=== PATIENT | female | born 1985 | race Caucasian/White ===

== ENCOUNTER 2016-02-21 10:18 | Emergency (ER) | payer OTHER ==
[~2016-02-21] VITALS: Ht 167.6 cm; Wt 99.8 kg
--- NOTE | 2016-02-21 11:09 | ED GI/GU/ABDOMINAL COMPLAINT ---
History of Present Illness General Chief Complaint: Nausea, Vomiting, Diarrhea Stated Complaint: N/V/DY Source: patient, old records Exam Limitations: no limitations Allergies Coded Allergies: No Known Allergies (02/21/16) Reconcile Medications Ondansetron HCl (Zofran) 4 MG TABLET 1 TAB PO Q6-8P PRN NAUSEA Triage Note: PT STATES HAS N/V/D SINCE 1030 LAST EVENING. Triage Nurses Notes Reviewed? yes ? n Is pt currently ? No Onset: Abrupt Duration: day(s): (1), constant, waxing and waning Timing: recent history Quality/Severity: vomiting Severity Numbers: 5 Location: generalized abdomen Radiation: no radiation Activities at Onset: sleep Prior Abdominal Problems: none Modifying Factors: Worsens With: eating. Associated Symptoms: denies HPI: 30-year-old female presents to emergency room complaining of multiple of nausea and vomiting since this morning. Patient reports that her mother has been home sick with similar symptoms. She denies any abdominal pain chest pain fever chills. No diarrhea and no black or bloody stools no hematemesis no urinary symptoms. The patient states that she did take her methadone yesterday however is unable to keep any further medications down today secondary to her symptoms. Symptoms are worse with attempted eating and drinking third no other modifying factors or associated symptoms (IVAN CARBAJAL) Vital Signs & Intake/Output Vital Signs & Intake/Output Vital Signs Date Time Temp Pulse Resp B/P Pulse O2 O2 Flow FiO2 Ox Delivery Rate 02/20 1252 97.9 68 18 102/56 100 Room Air 02/20 1145 Room Air 02/20 1032 97.4 74 16 108/70 98 Room Air Past History Travel History Traveled to [place] past 21 day No Medical History Any Pertinent Medical History? see below for history Psychiatric: anxiety, bipolar disease, depression, PTSD Surgical History Surgical History: Psychosocial History What is your primary language [place] Tobacco Use: Current Daily Use Daily Tobacco Use Amount/Type: => 5 Cigarettes daily ETOH Use: occasional use Illicit Drug Use: METHADONE Family History Hx Contributory? No (IVAN CARBAJAL) Review of Systems Review of Systems Constitutional: Reports: see HPI. All Other Systems: Reviewed and Negative Comments Review of systems: See HPI, All other systems negative. Constitutional, no chills no fever, no malaise HEENT: No visual changes no sore throat no congestion Cardiovascular: No chest pain , no palpitation Skin, no rashes, no change in skin Respiratory: No dyspnea no cough no sputum GI:nausea vomiting, no diarrhea : No dysuria No hematuria, no frequency Muscle skeletal: No joint pain, no back pain, no neck pain, Neurologic: No numbness no headache Psych: No stress Heme/endocrine: No bruising no bleeding Immunology: No lymphadenopathy (IVAN CARBAJAL) Physical Exam Physical Exam General Appearance: well developed/nourished, no apparent distress, alert, awake Gastrointestinal: soft Comments: Well-developed well-nourished person in no acute distress HEENT: Normal EENT exam; PERRL, EOMI,HEAD is atraumatic. moist mucous membranes. Neck: Supple, normal range of motion Back: Nontender, no CVA tenderness. Full range of motion Cardiovascular: Regular rate and rhythms no murmurs rubs Respiratory: No respiratory distress. Patient speaking in full complete sentences. Breath sounds clear to auscultation bilaterally: NO W/R/R Abdomen: Soft, nontender nondistended, no appreciable organomegaly. Normal bowel sounds. No rebound/guarding, No ascites. Extremity: No edema, full range of motion of extremities, Neuro: Alert oriented x3, motor sensory normal There were no obvious focal neurologic abnormalities. Skin: No appreciable rash on exposed skin, skin is warm and dry. Psych: Mood and affect is normal, memory and judgment is normal. Core Measures ACS in differential dx? No Severe Sepsis Present: No Septic Shock Present: No (IVAN CARBAJAL) Progress Differential Diagnosis: appendicitis, bowel obstruction, colon cancer, cholecystitis, diverticulitis, ectopic , gastritis, hepatitis, hernia, inflamm bowel dis, intrauterine , Helen-Keila tear, pancreatitis, peptic ulcer, PUD/GERD, SBO, UTI/pyelo Initial ED EKG: none (IVAN CARBAJAL) Plan of Care: Orders Procedure Date/time Status Add-on Test (ER Only) 02/20 1206 Active HUMAN BETA HCG SCREEN 02/20 1139 Complete Saline Lock 02/20 1124 Active LIPASE 02/20 1124 Complete COMPREHENSIVE METABOLIC PANEL 02/20 1124 Complete CBC WITHOUT DIFFERENTIAL 02/20 1124 Complete AMYLASE 02/20 1124 Complete Laboratory Tests 02/21/16 1139: Anion Gap 15, Estimated GFR > 60, BUN/Creatinine Ratio 16.7, Glucose 113 H, Calcium 9.5, Total Bilirubin 0.6, AST 24, ALT 33, Alkaline Phosphatase 74, Total Protein 8.0, Albumin 4.3, Globulin 3.7, Albumin/Globulin Ratio 1.2, Amylase < 30 L, Lipase 75, Total Beta HCG NEGATIVE, CBC w Diff MAN DIFF ORDERED, RBC 5.00, MCV 86.0, MCH 28.3, RDW 14.7 H, MPV 9.8, Gran % 89.6 H, Lymphocytes % 8.8 L, Monocytes % 1.5 L, Eosinophils % 0, Basophils % 0.1, Absolute Granulocytes 11.9 H, Absolute Lymphocytes 1.2, Absolute Monocytes 0.2, Absolute Eosinophils 0, Absolute Basophils 0, Platelet Estimate VERIFIED BY SMEAR, Anisocytosis 1+, PUBS MCHC 33.0 Patient medicated IV fluids Zofran 4 IV Toradol 30 IV and labs ordered old records. 02/21/2016 12:50:45 PM patient feeling improved tolerating by mouth challenge and again her abdominal exam is soft nontender. Discussed apparently fell for lab result she is tolerating by mouth challenge. Patient is able to take her methadone prior to discharge feeling better able to keep it down prescription for Zofran was provided advised bland diet clear liquids advance as tolerated return with any concerns answered all of her questions she feels comfortable plan cleared for discharge (IVAN CARBAJAL) Departure Departure Time of Disposition: 1250 Disposition: HOME OR SELF CARE Condition: Stable Clinical Impression Primary Impression: Nausea & vomiting Referrals: PATIENT HAS NO PRIMARY CARE DR (PCP/Family) Referred to [facility] as new patient No Additional Instructions: Zofran for nausea. Friendship diet clear liquids water Gatorade. Advance diet as tolerated follow up with her primary care physician return with any concerns Departure Forms: Customer Survey General Discharge Information Prescriptions: Current Visit Scripts Ondansetron HCl (Zofran) 1 TAB PO Q6-8P PRN NAUSEA #10 TAB (IVAN CARBAJAL) PA/PRICE LISTER Co-Sign Statement Statement: ED Attending supervision documentation- [] I saw and evaluated the patient. I have also reviewed all the pertinent lab results and diagnostic results. I agree with the findings and the plan of care as documented in the PA's/PRICE LISTER's documentation. [X] I have reviewed the ED Record and agree with the PA's/PRICE LISTER's documentation. [] Additions or exceptions (if any) to the PAs/PRICE LISTER's note and plan are summarized below: [] (IRVING PARRISH,NILE)
[2016-02-21 11:55] LABS: ABSOLUTE BASOPHIL COUNT 0 /CUMM (0.0-0.2); ABSOLUTE EOSINOPHIL COUNT 0 /CUMM (0.0-0.7); ABSOLUTE GRANULOCYTE CT 11.9 /CUMM (1.4-6.5); ABSOLUTE LYMPH COUNT 1.2 /CUMM (1.2-3.4); ABSOLUTE MONOCYTE COUNT 0.2 /CUMM (0.10-0.60); BASOPHIL % 0.1 % (0.0-2.0); EOSINOPHIL % 0 % (0-5); GRANULOCYTE % 89.6 % (42.2-75.2); MEAN CORPUSCULAR HGB 28.3 PG (27.0-31.0); MEAN PLATELET VOLUME 9.8 FL (7.4-10.4); PLATELET COUNT 282 /CUMM (130-400); RBC DISTRIBUTION WIDTH 14.7 % (11.5-14.5); WHITE BLOOD CELL COUNT 13.3 /CUMM (4.8-10.8)
[2016-02-21] MEDS ORDERED: ZOFRAN4 M2 PO (12:51)
[2016-02-21 12:52] VITALS: BP 102/56
== END 2016-02-21 13:51 ==
LOC: ERH 10:18
PROVIDERS: Physician Assistant Medical
DX: R11.2 Nausea with vomiting, unspecified (principal)
CPT/HCPCS: 96361; 96374; 96375; J1885; J2405